=== PATIENT | male | born 1975 | race Caucasian/White ===

== ENCOUNTER 2018-06-25 20:53 | Emergency (ER) | payer MEDICAID ==
[2018-06-25 22:45] LABS: ADD UMIC YES; UR ASCORBIC ACID NEGATIVE (NEGATIVE); UR BILIRUBIN (Dip) NEGATIVE (NEGATIVE); UR BLOOD (Dip) NEGATIVE (NEGATIVE); UR CLARITY CLEAR (CLEAR); UR COLOR YELLOW (YELLOW); UR GLUCOSE (Dip) NEGATIVE (NEGATIVE); UR KETONES (Dip) NEGATIVE (NEGATIVE); UR LEUKOCYTE ESTERASE (Dip) TRACE Leu/ul (NEGATIVE); UR NITRITE (Dip) NEGATIVE (NEGATIVE); UR RBC 0 /HPF (0-5); UR SPECIFIC GRAVITY (Dip) 1.024 (1.003-1.030); UR TOTAL PROTEIN (Dip) NEGATIVE (NEGATIVE); UR UROBILINOGEN (Dip) 1+ mg/dL (NEGATIVE); UR WBC 1 /HPF (0-5)
[2018-06-26] MEDS: AZITHROMYCIN 250 MG TAB PO (00:45)
[2018-06-26] MEDS: CEFTRIAXONE 250 MG INJ IM (00:45)
== END 2018-06-26 01:15 | disposition home or self-care (01) ==
LOC: FTE 06-26 01:15
DX: A64 Unspecified sexually transmitted disease (principal); F41.9 Anxiety disorder, unspecified; R39.12 Poor urinary stream
CPT/HCPCS: 81001; 87086; 87591; 96372; 99284-25